=== PATIENT | female | born 1965 | race Caucasian/White ===

== ENCOUNTER 2020-06-19 04:35 | Day surgery (SDC) | payer OTHER ==
[2020-06-16 10:35] VITALS: BMI 29.5
[2020-06-19] MEDS ORDERED: methylPREDNISolone ACET (DEPO) 40 MG/1 ML VIAL ONE ×2 (07:46→10:23)
[2020-06-19] MEDS ORDERED: BUPIVACAINE HCL/PF 0.25% (2.5MG/ML) 10 ML VIAL ONE (07:46)
[2020-06-19] MEDS ORDERED: MIDAZOLAM HCL 2 MG/2 ML SINGLE DOSE VIAL ONE (08:20)
[2020-06-19] MEDS ORDERED: PROPOFOL 20 ML ONE ×4 (08:20→09:59)
[2020-06-19] MEDS ORDERED: SUCCINYLCHOLINE CHLORIDE 200 MG/10 ML SYRINGE ONE (08:20)
[2020-06-19] MEDS ORDERED: LIDOCAINE HCL/PF 2% SDV 5ML VIAL ONE (09:30)
[2020-06-19] MEDS ORDERED: ceFAZolin SODIUM 1 GM VIAL ONE (09:30)
[2020-06-19] MEDS ORDERED: KETOROLAC TROMETHAMINE 30 MG/1 ML VIAL ONE (09:30)
[2020-06-19] MEDS ORDERED: DEXAMETHASONE SOD PHOSPHATE 4 MG/1 ML VIAL ONE (09:30)
[2020-06-19] MEDS ORDERED: methylPREDNISolone ACET (DEPO) 40 MG/1 ML VIAL NR ONE (09:41)
[2020-06-19] MEDS ORDERED: BUPIVACAINE HCL/PF 0.25% (2.5MG/ML) 10 ML VIAL IJ ONE (09:41)
[2020-06-19] MEDS ORDERED: ONDANSETRON 4 MG/2 ML VIAL IVPUSH PRN (10:26)
[2020-06-19] MEDS ORDERED: oxyCODONE HCL 5 MG TABLET PO PRN ×2 (10:26)
[2020-06-19] MEDS ORDERED: LACTATED RINGERS SOLUTION 1,000 ML IV SCH (10:30)
[2020-06-19 10:50] VITALS: TEMP 98
[2020-06-19 13:03] VITALS: BP 124/72; PULSE 71
--- NOTE | 2020-06-19 13:29 | OP ---
DATE OF OPERATION: 06/19/2020 OPERATIVE PROCEDURE: Diagnostic arthroscopy, right knee, with removal of loose bodies. ([id number]) SURGEON: Juan West MD DESCRIPTION OF PROCEDURE: The patient correctly identified, brought to the operating room. The right knee was seated in a knee omalley at the level of the thigh. Tourniquet was applied for bloodless field surgery. The limb was cleansed with Betadine scrub solution, wiped off with alcohol and DuraPrep applied and a free drape applied. Timeout was called. Imaging was available for intraoperative evaluation. Using a standard anteromedial portal in the original scar from the previous tumor resection, the arthroscope was introduced into the joint. The joint was, surprisingly, relatively normal. The suprapatellar pouch revealed no synovitis. The medial compartment revealed the presence of [place] level I changes on the femoral condyle as well as the tibial plateau. The meniscus was normal and pristine. The lateral compartment revealed the presence of [place] level II changes on the femoral condyle, and this was patchy, as well as the tibial plateau. The lateral meniscus also was completely pristine and fully intact. The patellofemoral joint revealed the presence of level II [place]bridge changes on the patella surface and level I changes on the trochlear groove. Lots of multiple loose bodies were noted within the confines of the joint, and these were readily washed out. After that, the wound was thoroughly lavaged, and 1 mL of Depo-Medrol as well as 5 mL of Marcaine instilled into the joint. The portals were closed with 3-0 nylon. Operation went well with no complications. MD LEIGHA Davis/[id number] MTDD
--- NOTE | 2020-06-19 14:10 | OP ---
Operative Note - Note: Operative Date: 06/19/20 Pre-Operative Diagnosis: OA R Knee Operation: Arthroscopy R Knee diagnostic scope with removal loose bodies Findings: [place] level 1 OA knee Surgeon: Juan West Anesthesiologist/ADULT NEUROLOGIST: Richard Bashir Anesthesia: General Specimens Removed: Loose bodies Estimated Blood Loss (mls): 0 Fluid Volume Replaced (mls): 1,000 Operative Report Dictated: Yes
== END 2020-06-19 13:03 | disposition home or self-care (01) ==
LOC: JASU-SURG 04:35
PROVIDERS: ATTEND Orthopaedic Surgery Orthopaedic Surgery of the Spine
PROC: 0SCC4ZZ Extirpation of Matter from Right Knee Joint, Percutaneous Endoscopic Approach (ICD-10-PCS; principal; 2020-06-19 09:00)
DX: M23.41 Loose body in knee, right knee (principal)
CPT/HCPCS: 94760